=== PATIENT | male | born 1965 | race Caucasian/White ===

== ENCOUNTER 2016-12-11 22:05 | Emergency (ER) | payer OTHER ==
[~2016-12-11] VITALS: Ht 167.6 cm; Wt 80.9 kg
[~2016-12-11 22:05] MED LIST: ASPI-1061 PO; ATOR20TA86 PO; CARV12 PO; OMEP20 PO
[2016-12-11] MEDS ORDERED: NITR.4 SL (22:15)
[2016-12-11] MEDS ORDERED: ALLO100T PO (22:15)
[2016-12-11] MEDS ORDERED: ALBU8.5H IH (22:15)
[2016-12-11] MEDS ORDERED: SODIUM CHLORIDE 0.9% 1,000 ML IV ONE (22:27)
[2016-12-11 23:20] LABS: BASOPHILS % (AUTO) 0.6 % (0.0-2.0); EOSINOPHILS % (AUTO) 3.5 % (1.0-6.0); HEMATOCRIT 38.2 % (41-53); HEMOGLOBIN 12.4 g/dL (13.5-17.5); LYMPHOCYTES # (AUTO) 2.7 K/uL (1.0-4.8); LYMPHOCYTES % (AUTO) 40.4 % (22.0-44.0); MEAN CORPUSCULAR HEMOGLOBIN 28.7 pg (26.0-34.0); MEAN CORPUSCULAR HGB CONC 32.5 G/dL (31.0-37.0); MEAN CORPUSCULAR VOLUME 88 fL (80-100); MONOCYTES # (AUTO) 0.6 K/uL (0.1-1.0); MONOCYTES % (AUTO) 9.5 % (2.0-9.0); NEUTROPHILS # (AUTO) 3.1 K/uL (1.8-7.7); PLATELET COUNT (AUTO) 201 K/uL (150-450); RED BLOOD CELL COUNT(AUTO) 4.33 MIL/uL (4.50-5.90); RED CELL DISTRIBUTION WIDTH 14.6 % (11.5-14.5); WHITE BLOOD COUNT (AUTO) 6.7 K/uL (4.5-11.0)
[2016-12-11 23:24] LABS: PROTHROMBIN TIME 10.1 SEC (9.4-11.6)
[2016-12-11 23:26] LABS: ANION GAP 10 mmol/L (8-16); CALCIUM, TOTAL 8.6 mg/dL (8.8-10.5); CARBON DIOXIDE 25 mmol/L (22-29); CHLORIDE 107 mmol/L (98-107); GLOMERULAR FILTR. RATE CALC > 60 mL/min (>60); POTASSIUM 3.3 mmol/L (3.5-5.1); SODIUM SERUM 142 mmol/L (136-145); UREA NITROGEN, BLOOD 15 mg/dL (7-18)
[2016-12-11 23:32] LABS: ALANINE AMINOTRANSFERASE 28 U/L (12-78); ALBUMIN 3.7 g/dL (3.4-5.0); ASPARTATE AMINOTRANSFERASE 14 U/L (15-37); BILIRUBIN,TOTAL 0.2 mg/dL (0.1-1.0)
[2016-12-11 23:52] LABS: APPEARANCE,URINE CLEAR (CLEAR); GLUCOSE, URINE (UA) NEGATIVE (NEGATIVE); KETONES,URINE NEGATIVE (NEGATIVE); LEUKOCYTE ESTERASE ,URINE NEGATIVE (NEGATIVE); OCCULT BLOOD,URINE NEGATIVE (NEGATIVE); PROTEIN,URINE NEGATIVE (NEGATIVE)
[2016-12-11 23:53] LABS: ADD UA MICROSCOPIC NO
[2016-12-12] MEDS ORDERED: ONDANSETRON HCL 4 MG/2 ML VIAL IVP ONE (01:15)
[2016-12-12] MEDS ORDERED: MORPHINE SULFATE 4 MG/ML SYRINGE IVP ONE (01:15)
[2016-12-12] MEDS ORDERED: HYDROmorphone 2 MG/ML SYRINGE IVP ONE ×2 (03:15→05:00)
[2016-12-12] MEDS ORDERED: SODIUM CHLORIDE 0.9% 1,000 ML IV ONE (03:15)
[2016-12-12] MEDS ORDERED: METOCLOPRAMIDE HCL 5 MG/ML 2 ML VIAL IVP ONE (05:00)
[2016-12-12 06:03] VITALS: BP 98/66
== END 2016-12-12 06:05 | disposition home or self-care (01) ==
LOC: EMS 22:07
DX: K92.1 Melena (principal); I10 Essential (primary) hypertension; E87.6 Hypokalemia; D64.9 Anemia, unspecified; F17.210 Nicotine dependence, cigarettes, uncomplicated; F12.10 Cannabis abuse, uncomplicated; Z90.49 Acquired absence of other specified parts of digestive tract; F41.9 Anxiety disorder, unspecified; J45.909 Unspecified asthma, uncomplicated; F32.9 Major depressive disorder, single episode, unspecified; K21.9 Gastro-esophageal reflux disease without esophagitis; K58.9 Irritable bowel syndrome, unspecified; K85.90 Acute pancreatitis without necrosis or infection, unspecified
CPT/HCPCS: 36415; 74176; 80053; 81003; 82271; 83690; 85025; 85610; 85730; 96361; 96374; 96375; 96376; 99285; 99406; J1170; J2270; J2405; J2765; J7030 ×2

== ENCOUNTER 2017-06-03 13:05 | Emergency (ER) | payer OTHER ==
[~2017-06-03] VITALS: Ht 167.6 cm; Wt 78.6 kg
[~2017-06-03 13:05] MED LIST changes: +ALBU8.5H8 IH; +ALLO100T PO; -ASPI-1061 PO; +ASPI81TA33 PO; +NITR.4 SL
[2017-06-03 13:49] LABS: BASOPHILS % (AUTO) 0.4 % (0.0-2.0); EOSINOPHILS % (AUTO) 2.8 % (1.0-6.0); HEMATOCRIT 44.2 % (41-53); LYMPHOCYTES # (AUTO) 2.1 K/uL (1.0-4.8); LYMPHOCYTES % (AUTO) 30.4 % (22.0-44.0); MEAN CORPUSCULAR HEMOGLOBIN 29.6 pg (26.0-34.0); MEAN CORPUSCULAR HGB CONC 33.8 G/dL (31.0-37.0); MEAN CORPUSCULAR VOLUME 88 fL (80-100); MONOCYTES # (AUTO) 0.4 K/uL (0.1-1.0); MONOCYTES % (AUTO) 6.4 % (2.0-9.0); NEUTROPHILS # (AUTO) 4.2 K/uL (1.8-7.7); PLATELET COUNT (AUTO) 235 K/uL (150-450); RED BLOOD CELL COUNT(AUTO) 5.05 MIL/uL (4.50-5.90); RED CELL DISTRIBUTION WIDTH 15.4 % (11.5-14.5)
[2017-06-03 14:01] LABS: ANION GAP 10 mmol/L (8-16); CALCIUM, TOTAL 9.2 mg/dL (8.8-10.5); CARBON DIOXIDE 25 mmol/L (22-29); CHLORIDE 109 mmol/L (98-107); CREATININE 0.92 mg/dL (0.60-1.30); GLOMERULAR FILTR. RATE CALC > 60 mL/min (>60); POTASSIUM 4.4 mmol/L (3.5-5.1); SODIUM SERUM 144 mmol/L (136-145); UREA NITROGEN, BLOOD 10 mg/dL (7-18)
[2017-06-03 14:08] LABS: ALANINE AMINOTRANSFERASE 32 U/L (12-78); ASPARTATE AMINOTRANSFERASE 20 U/L (15-37); BILIRUBIN,TOTAL 0.3 mg/dL (0.1-1.0); TOTAL PROTEIN, SERUM 7.5 g/dL (6.4-8.2)
[2017-06-03 15:57] LABS: APPEARANCE,URINE CLEAR (CLEAR); GLUCOSE, URINE (UA) NEGATIVE (NEGATIVE); KETONES,URINE NEGATIVE (NEGATIVE); LEUKOCYTE ESTERASE ,URINE NEGATIVE (NEGATIVE); OCCULT BLOOD,URINE NEGATIVE (NEGATIVE); PROTEIN,URINE NEGATIVE (NEGATIVE)
[2017-06-03 15:58] LABS: ADD UA MICROSCOPIC NO
[2017-06-03] MEDS ORDERED: KETOROLAC TROMETHAMINE 30 MG/ML VIAL IVP ONE (16:15)
[2017-06-03] MEDS ORDERED: BARIUM SULFATE 0.1% SUSPENSION 450 ML BOTTLE PO ONE (17:30)
[2017-06-03] MEDS ORDERED: MORPHINE SULFATE 4 MG/ML SYRINGE IVP ONE (17:45)
[2017-06-03] MEDS ORDERED: METOCLOPRAMIDE HCL 5 MG/ML 2 ML VIAL IVP ONE (17:45)
[2017-06-03] MEDS ORDERED: ONDANSETRON HCL 4 MG/2 ML VIAL IVP ONE (17:45)
[2017-06-03] MEDS ORDERED: SODIUM CHLORIDE 0.9% 100 ML ONE (18:22)
[2017-06-03] MEDS ORDERED: IOVERSOL 320 MG/ML 100 ML VIAL ONE (18:22)
[2017-06-03 20:46] VITALS: BP 126/82
== END 2017-06-03 20:48 | disposition home or self-care (01) ==
LOC: EMS 13:09
DX: K86.1 Other chronic pancreatitis (principal); J45.909 Unspecified asthma, uncomplicated; I10 Essential (primary) hypertension; K21.9 Gastro-esophageal reflux disease without esophagitis; F12.90 Cannabis use, unspecified, uncomplicated; Z88.8 Allergy status to other drugs, medicaments and biological substances; Z87.891 Personal history of nicotine dependence
CPT/HCPCS: 36415; 74177; 80053; 81003; 83690; 85025; 96374; 96375; 99285; J1885; J2270; J2405; J2765; J7050; Q9967; Z7610

== ENCOUNTER 2017-08-01 08:53 | Emergency (ER) | payer OTHER ==
[~2017-08-01] VITALS: Ht 167.6 cm; Wt 78.2 kg
[2017-08-01 09:53] LABS: INFLUENZA TYPE B NEGATIVE FOR TYPE B (NEGATIVE)
[2017-08-01 11:01] VITALS: BP 130/88
== END 2017-08-01 11:09 | disposition home or self-care (01) ==
LOC: EMS 08:53
DX: J40 Bronchitis, not specified as acute or chronic (principal); M79.1 Myalgia; R19.7 Diarrhea, unspecified; J45.909 Unspecified asthma, uncomplicated; K21.9 Gastro-esophageal reflux disease without esophagitis; I10 Essential (primary) hypertension; F12.90 Cannabis use, unspecified, uncomplicated; Z86.73 Personal history of transient ischemic attack (TIA), and cerebral infarction without residual deficits; Z88.1 Allergy status to other antibiotic agents; Z88.8 Allergy status to other drugs, medicaments and biological substances; Z79.82 Long term (current) use of aspirin
CPT/HCPCS: 87804; 99285

== ENCOUNTER 2017-10-10 09:42 | Inpatient (IN) | payer OTHER ==
[~2017-10-10] VITALS: Ht 167.6 cm; Wt 79.5 kg
[2017-10-10 10:24] LABS: BASOPHILS % (AUTO) 0.5 % (0.0-2.0); EOSINOPHILS % (AUTO) 2.2 % (1.0-6.0); HEMATOCRIT 44.2 % (41-53); HEMOGLOBIN 14.8 g/dL (13.5-17.5); LYMPHOCYTES # (AUTO) 1.9 K/uL (1.0-4.8); LYMPHOCYTES % (AUTO) 29.6 % (22.0-44.0); MEAN CORPUSCULAR HEMOGLOBIN 29.7 pg (26.0-34.0); MEAN CORPUSCULAR HGB CONC 33.5 G/dL (31.0-37.0); MEAN CORPUSCULAR VOLUME 89 fL (80-100); MONOCYTES # (AUTO) 0.4 K/uL (0.1-1.0); MONOCYTES % (AUTO) 5.7 % (2.0-9.0); PLATELET COUNT (AUTO) 210 K/uL (150-450); RED BLOOD CELL COUNT(AUTO) 4.99 MIL/uL (4.50-5.90); RED CELL DISTRIBUTION WIDTH 14.1 % (11.5-14.5)
[2017-10-10 10:35] LABS: ANION GAP 8 mmol/L (8-16); CALCIUM, TOTAL 9.3 mg/dL (8.8-10.5); CARBON DIOXIDE 28 mmol/L (22-29); CHLORIDE 105 mmol/L (98-107); CREATININE 1.08 mg/dL (0.60-1.30); GLOMERULAR FILTR. RATE CALC > 60 mL/min (>60); GLUCOSE,RANDOM 121 mg/dL (70-110); SODIUM SERUM 141 mmol/L (136-145); UREA NITROGEN, BLOOD 18 mg/dL (7-18)
[2017-10-10] MEDS ORDERED: ASPIRIN 325 MG TABLET PO ONE (10:50)
[2017-10-10 10:59] LABS: ALANINE AMINOTRANSFERASE 32 U/L (12-78); ALBUMIN 4.1 g/dL (3.4-5.0); ALKALINE PHOSPHATASE 82 U/L (46-116); ASPARTATE AMINOTRANSFERASE 20 U/L (15-37); BILIRUBIN,TOTAL 0.6 mg/dL (0.1-1.0); CREATINE KINASE MB 1.1 ng/mL (0-5); CREATINE KINASE, TOTAL 83 U/L (39-308); TOTAL PROTEIN, SERUM 7.5 g/dL (6.4-8.2)
[2017-10-10 11:44] LABS: APPEARANCE,URINE CLEAR (CLEAR); BILIRUBIN,URINE NEGATIVE (NEGATIVE); GLUCOSE, URINE (UA) NEGATIVE (NEGATIVE); KETONES,URINE NEGATIVE (NEGATIVE); LEUKOCYTE ESTERASE ,URINE NEGATIVE (NEGATIVE); NITRATE,URINE NEGATIVE (NEGATIVE); OCCULT BLOOD,URINE NEGATIVE (NEGATIVE); PROTEIN,URINE NEGATIVE (NEGATIVE); UROBILINOGEN,URINE 0.2 mg/dL (<=1.0)
[2017-10-10] MEDS ORDERED: BISACODYL 10 MG RECTAL RECTAL SUPPOSITORY PR PRN (13:15)
[2017-10-10] MEDS ORDERED: HydrALAZINE HCL 20 MG/ML VIAL IVP PRN (13:15)
[2017-10-10] MEDS ORDERED: ONDANSETRON HCL 4 MG/2 ML VIAL IVP PRN (13:15)
[2017-10-10] MEDS ORDERED: ZOLPIDEM TARTRATE 5 MG TABLET PO PRN (13:15)
[2017-10-10] MEDS ORDERED: MORPHINE SULFATE 2 MG/ML SYRINGE IVP PRN (13:15)
[2017-10-10] MEDS ORDERED: MAGNESIUM HYDROXIDE SUSPENSION 30 ML UDCUP PO PRN (13:15)
[2017-10-10] MEDS ORDERED: ACETAMINOPHEN 325 MG TABLET PO PRN (13:15)
[2017-10-10] MEDS ORDERED: ALBUTEROL SULFATE HFA 90 MCG/PUFF 8 GM INHALER IH PRN (13:15)
[2017-10-10 13:40] LABS: AMPHET/METH SCREEN,URINE NEGATIVE (NEGATIVE); BARBITURATE SCREEN, URINE NEGATIVE (NEGATIVE); BENZODIAZEPINES SCREEN,URINE NEGATIVE (NEGATIVE); CANNABINOID SCREEN,URINE POSITIVE (NEGATIVE); COCAINE SCREEN,URINE NEGATIVE (NEGATIVE); METHADONE SCREEN, URINE NEGATIVE (NEGATIVE); OPIATE SCREEN,URINE POSITIVE (NEGATIVE); PHENCYCLIDINE SCREEN,URINE NEGATIVE (NEGATIVE)
[2017-10-10] MEDS ORDERED: ONDANSETRON HCL 4 MG TABLET PO ONE (13:45)
[2017-10-10] MEDS ORDERED: HYDROCODONE/ACETAMINOPHEN 5-325 MG TABLET PO ONE (13:45)
[2017-10-10 15:29] LABS: PROTHROMBIN TIME 10.4 SEC (9.4-11.6)
[2017-10-10] MEDS: NITROGLYCERIN 2% (1 GM=INCH) PACKET TP SCH ×2 (15:32→23:31)
[2017-10-10] MEDS: HEPARIN SODIUM,PORCINE 5,000 UNITS/ML VIAL SQ SCH ×2 (15:41→23:26)
[2017-10-10 18:04] VITALS: BP 118/80
[2017-10-10] MEDS: HYDROCODONE/ACETAMINOPHEN 5-325 MG TABLET PO PRN ×2 (18:34→23:26)
[2017-10-10 19:32] VITALS: BP 115/77
[2017-10-10] MEDS: DOCUSATE SODIUM 100 MG CAPSULE PO SCH (20:36)
[2017-10-10 23:15] VITALS: BP 109/73
[2017-10-11 04:44] VITALS: BP 106/69
[2017-10-11 06:38] LABS: BASOPHILS % (AUTO) 0.6 % (0.0-2.0); EOSINOPHILS % (AUTO) 3.8 % (1.0-6.0); HEMATOCRIT 41.2 % (41-53); HEMOGLOBIN 13.9 g/dL (13.5-17.5); LYMPHOCYTES # (AUTO) 2.1 K/uL (1.0-4.8); LYMPHOCYTES % (AUTO) 39.8 % (22.0-44.0); MEAN CORPUSCULAR HEMOGLOBIN 29.9 pg (26.0-34.0); MEAN CORPUSCULAR HGB CONC 33.7 G/dL (31.0-37.0); MEAN CORPUSCULAR VOLUME 89 fL (80-100); MONOCYTES # (AUTO) 0.4 K/uL (0.1-1.0); MONOCYTES % (AUTO) 8.3 % (2.0-9.0); NEUTROPHILS # (AUTO) 2.5 K/uL (1.8-7.7); NEUTROPHILS % (AUTO) 47.5 % (40.0-70.0); PLATELET COUNT (AUTO) 199 K/uL (150-450); RED BLOOD CELL COUNT(AUTO) 4.63 MIL/uL (4.50-5.90); RED CELL DISTRIBUTION WIDTH 14.2 % (11.5-14.5)
[2017-10-11 06:54] LABS: ANION GAP 8 mmol/L (8-16); CALCIUM, TOTAL 8.6 mg/dL (8.8-10.5); CARBON DIOXIDE 26 mmol/L (22-29); CHLORIDE 105 mmol/L (98-107); CHOL/HDL RATIO 2.4 (4.2-7.3); CHOLESTEROL 111 mg/dL (131-200); CREATININE 1.03 mg/dL (0.60-1.30); GLOMERULAR FILTR. RATE CALC > 60 mL/min (>60); GLUCOSE,RANDOM 105 mg/dL (70-110); HDL CHOLESTEROL 47 mg/dL (40-60); LDL CHOL (CALC.) 43 mg/dL (0-130); POTASSIUM 3.8 mmol/L (3.5-5.1); SODIUM SERUM 139 mmol/L (136-145); TRIGLYCERIDES 107 mg/dL (15-150); UREA NITROGEN, BLOOD 14 mg/dL (7-18)
[2017-10-11 07:34] VITALS: BP 95/60
[2017-10-11] MEDS: NITROGLYCERIN 2% (1 GM=INCH) PACKET TP SCH (08:00)
[2017-10-11] MEDS: HEPARIN SODIUM,PORCINE 5,000 UNITS/ML VIAL SQ SCH (08:00)
[2017-10-11] MEDS ORDERED: PANTOPRAZOLE SODIUM 40 MG DR TABLET PO SCH (09:00)
[2017-10-11] MEDS ORDERED: ASPIRIN 81 MG CHEWABLE TABLET PO SCH (09:00)
[2017-10-11] MEDS ORDERED: CARVEDILOL 12.5 MG TABLET PO SCH (09:00)
[2017-10-11] MEDS ORDERED: ALLOPURINOL 100 MG TABLET PO SCH (09:00)
[2017-10-11 09:10] VITALS: BP 116/74
[2017-10-11 10:53] VITALS: BP 158/66
[2017-10-11 11:59] VITALS: BP 101/48
[2017-10-11] MEDS: DOCUSATE SODIUM 100 MG CAPSULE PO SCH (12:02)
[2017-10-11] MEDS: HYDROCODONE/ACETAMINOPHEN 5-325 MG TABLET PO PRN (12:12)
[2017-10-11 15:48] VITALS: BP 114/66
== END 2017-10-11 18:11 | disposition home or self-care (01) | DRG 198 ==
LOC: EMS 09:43 → 5N 16:43 → EMS 17:37
PROVIDERS: ADMIT Internal Medicine; ATTEND Internal Medicine
DX: I20.0 Unstable angina (principal); I42.9 Cardiomyopathy, unspecified; K76.0 Fatty (change of) liver, not elsewhere classified; E78.5 Hyperlipidemia, unspecified; K21.9 Gastro-esophageal reflux disease without esophagitis; M10.9 Gout, unspecified; J45.909 Unspecified asthma, uncomplicated; F41.9 Anxiety disorder, unspecified; K58.9 Irritable bowel syndrome, unspecified; F12.90 Cannabis use, unspecified, uncomplicated; F17.210 Nicotine dependence, cigarettes, uncomplicated; I10 Essential (primary) hypertension; Z83.3 Family history of diabetes mellitus; Z82.49 Family history of ischemic heart disease and other diseases of the circulatory system; Z88.1 Allergy status to other antibiotic agents; Z88.8 Allergy status to other drugs, medicaments and biological substances; Z79.82 Long term (current) use of aspirin; Z79.899 Other long term (current) drug therapy; Z90.49 Acquired absence of other specified parts of digestive tract; I69.351 Hemiplegia and hemiparesis following cerebral infarction affecting right dominant side
CPT/HCPCS: 71046; 93005; 93017; 93350; 99285; J1644; Q0162

== ENCOUNTER 2018-01-13 13:10 | Inpatient (IN) | payer OTHER ==
[~2018-01-13] VITALS: Ht 172.7 cm; Wt 86.9 kg
[~2018-01-13 13:10] MED LIST changes: -ASPI81TA33 PO; +ASPI81TA87 PO
[2018-01-13] MEDS ORDERED: BUPR100 PO (13:28)
[2018-01-13] MEDS ORDERED: ERGO500014 PO (13:28)
[2018-01-13] MEDS ORDERED: VITAD1000 PO (13:28)
[2018-01-13] MEDS ORDERED: LORA0.5T2 PO (13:28)
[2018-01-13] MEDS ORDERED: OMEG-135 PO (13:28)
[2018-01-13 13:33] LABS: GLUCOSE,POINT OF CARE 97 MG/DL (70-110)
[2018-01-13] MEDS ORDERED: IOVERSOL 350 MG/ML 100 ML VIAL ONE (13:38)
[2018-01-13] MEDS ORDERED: SODIUM CHLORIDE 0.9% 100 ML ONE (13:38)
[2018-01-13 13:49] LABS: HEMATOCRIT 44.9 % (41-53); HEMOGLOBIN 15.1 g/dL (13.5-17.5); RED BLOOD CELL COUNT(AUTO) 5.26 MIL/uL (4.50-5.90)
[2018-01-13 13:50] LABS: BASOPHILS % (AUTO) 0.5 % (0.0-2.0); EOSINOPHILS % (AUTO) 2.8 % (1.0-6.0); LYMPHOCYTES % (AUTO) 30.9 % (22.0-44.0); MEAN CORPUSCULAR HEMOGLOBIN 28.8 pg (26.0-34.0); MEAN CORPUSCULAR HGB CONC 33.7 G/dL (31.0-37.0); MEAN CORPUSCULAR VOLUME 85 fL (80-100); MONOCYTES # (AUTO) 0.6 K/uL (0.1-1.0); MONOCYTES % (AUTO) 8.9 % (2.0-9.0); NEUTROPHILS # (AUTO) 3.8 K/uL (1.8-7.7); NEUTROPHILS % (AUTO) 56.9 % (40.0-70.0); PLATELET COUNT (AUTO) 233 K/uL (150-450); RED CELL DISTRIBUTION WIDTH 14.5 % (11.5-14.5)
[2018-01-13 14:05] LABS: INR 0.9 (0.9-1.1); PROTHROMBIN TIME 9.9 SEC (9.4-11.6)
[2018-01-13 14:06] LABS: ANION GAP 12 mmol/L (8-16); CALCIUM, TOTAL 9.1 mg/dL (8.8-10.5); CARBON DIOXIDE 22 mmol/L (22-29); CHLORIDE 105 mmol/L (98-107); CREATININE 1.02 mg/dL (0.60-1.30); GLOMERULAR FILTR. RATE CALC > 60 mL/min (>60); GLUCOSE,RANDOM 104 mg/dL (70-110); SODIUM SERUM 139 mmol/L (136-145); UREA NITROGEN, BLOOD 12 mg/dL (7-18)
[2018-01-13 14:11] LABS: ALANINE AMINOTRANSFERASE 38 U/L (12-78); ALBUMIN 4.1 g/dL (3.4-5.0); ALKALINE PHOSPHATASE 91 U/L (46-116); ASPARTATE AMINOTRANSFERASE 26 U/L (15-37); BILIRUBIN,TOTAL 0.4 mg/dL (0.1-1.0); LIPASE 277 U/L (73-393); TOTAL PROTEIN, SERUM 7.7 g/dL (6.4-8.2)
[2018-01-13] MEDS ORDERED: ASPIRIN 81 MG CHEWABLE TABLET PO ONE (14:15)
[2018-01-13] MEDS ORDERED: BUPR100SR PO (14:17)
[2018-01-13] MEDS ORDERED: ZOLPIDEM TARTRATE 5 MG TABLET PO PRN (14:30)
[2018-01-13] MEDS ORDERED: BISACODYL 10 MG RECTAL RECTAL SUPPOSITORY PR PRN (14:30)
[2018-01-13] MEDS ORDERED: IPRATROPIUM BROMIDE 0.5 MG/2.5 ML NEB SOLUTION NEB PRN (14:30)
[2018-01-13] MEDS ORDERED: ALBUTEROL SULFATE 2.5 MG/0.5 ML NEB SOLUTION NEB PRN (14:30)
[2018-01-13] MEDS ORDERED: LORazepam 0.5 MG TABLET PO PRN (14:30)
[2018-01-13] MEDS ORDERED: NITROGLYCERIN 0.4 MG SUBLINGUAL TABLET #25 SL PRN (14:30)
[2018-01-13] MEDS ORDERED: ACETAMINOPHEN 325 MG TABLET PO PRN (14:30)
[2018-01-13] MEDS ORDERED: MAGNESIUM HYDROXIDE SUSPENSION 30 ML UDCUP PO PRN (14:30)
[2018-01-13] MEDS: HEPARIN SODIUM,PORCINE 5,000 UNITS/ML VIAL SQ SCH (16:14)
[2018-01-13] MEDS: MORPHINE SULFATE 4 MG/ML SYRINGE IVP PRN ×2 (16:32→21:28)
[2018-01-13 16:58] LABS: APPEARANCE,URINE CLEAR (CLEAR); BILIRUBIN,URINE NEGATIVE (NEGATIVE); GLUCOSE, URINE (UA) NEGATIVE (NEGATIVE); KETONES,URINE NEGATIVE (NEGATIVE); LEUKOCYTE ESTERASE ,URINE NEGATIVE (NEGATIVE); NITRATE,URINE NEGATIVE (NEGATIVE); OCCULT BLOOD,URINE NEGATIVE (NEGATIVE); PROTEIN,URINE NEGATIVE (NEGATIVE); UROBILINOGEN,URINE 0.2 mg/dL (<=1.0)
[2018-01-13 18:46] VITALS: BP 132/81
[2018-01-13 19:41] VITALS: BP 116/72
[2018-01-13] MEDS: ATORVASTATIN CALCIUM 20 MG TABLET PO SCH (21:27)
[2018-01-13] MEDS: DOCUSATE SODIUM 100 MG CAPSULE PO SCH (21:27)
[2018-01-13 23:58] VITALS: BP 101/71
[2018-01-14] MEDS: HEPARIN SODIUM,PORCINE 5,000 UNITS/ML VIAL SQ SCH ×3 (00:20→16:13)
[2018-01-14] MEDS: HYDROCODONE/ACETAMINOPHEN 5-325 MG TABLET PO PRN ×3 (00:22→19:35)
[2018-01-14 04:38] VITALS: BP 110/74
[2018-01-14] MEDS: ONDANSETRON HCL 4 MG/2 ML VIAL IVP PRN ×2 (05:32→14:18)
[2018-01-14 07:06] VITALS: BP 107/63
[2018-01-14] MEDS ORDERED: GADOBUTROL 1 MMOL/ML 10 ML VIAL IVP ONE (08:25)
[2018-01-14] MEDS ORDERED: OMEPRAZOLE 20 MG CAPSULE PO SCH (09:00)
[2018-01-14] MEDS ORDERED: ASPIRIN 81 MG EC TABLET PO SCH (09:00)
[2018-01-14] MEDS ORDERED: OMEGA-3/DHA/EPA/FISH OIL 1,000 MG CAPSULE PO SCH (09:00)
[2018-01-14] MEDS: PANTOPRAZOLE SODIUM 40 MG/VIAL IVP SCH (09:16)
[2018-01-14] MEDS: ALLOPURINOL 100 MG TABLET PO SCH (09:17)
[2018-01-14] MEDS: DOCUSATE SODIUM 100 MG CAPSULE PO SCH ×2 (09:17→21:27)
[2018-01-14] MEDS: CHOLECALCIFEROL (VIT D3) 1,000 UNITS TABLET PO SCH (09:17)
[2018-01-14] MEDS: BuPROPion HCL 100 MG SR TABLET PO SCH (09:18)
[2018-01-14] MEDS: MORPHINE SULFATE 4 MG/ML SYRINGE IVP PRN (09:29)
[2018-01-14 11:23] VITALS: BP 103/64
[2018-01-14 15:01] VITALS: BP 131/83
[2018-01-14 19:20] VITALS: BP 117/76
[2018-01-14] MEDS: ATORVASTATIN CALCIUM 20 MG TABLET PO SCH (21:27)
[2018-01-15] VITALS (8 sets, daily range): BP systolic 102–121; BP diastolic 63–77
[2018-01-15] MEDS: HEPARIN SODIUM,PORCINE 5,000 UNITS/ML VIAL SQ SCH ×3 (00:01→16:13)
[2018-01-15] MEDS: HYDROCODONE/ACETAMINOPHEN 5-325 MG TABLET PO PRN ×4 (00:01→19:50)
[2018-01-15 06:31] LABS: BASOPHILS % (AUTO) 0.6 % (0.0-2.0); HEMOGLOBIN 13.7 g/dL (13.5-17.5); LYMPHOCYTES # (AUTO) 2.3 K/uL (1.0-4.8); LYMPHOCYTES % (AUTO) 42.4 % (22.0-44.0); MEAN CORPUSCULAR HEMOGLOBIN 29.1 pg (26.0-34.0); MEAN CORPUSCULAR HGB CONC 34.3 G/dL (31.0-37.0); MEAN CORPUSCULAR VOLUME 85 fL (80-100); MONOCYTES # (AUTO) 0.5 K/uL (0.1-1.0); MONOCYTES % (AUTO) 8.5 % (2.0-9.0); NEUTROPHILS # (AUTO) 2.5 K/uL (1.8-7.7); NEUTROPHILS % (AUTO) 45.5 % (40.0-70.0); PLATELET COUNT (AUTO) 225 K/uL (150-450); RED BLOOD CELL COUNT(AUTO) 4.71 MIL/uL (4.50-5.90); RED CELL DISTRIBUTION WIDTH 14.4 % (11.5-14.5)
[2018-01-15 07:30] LABS: ALANINE AMINOTRANSFERASE 50 U/L (12-78); ALBUMIN 3.5 g/dL (3.4-5.0); ALKALINE PHOSPHATASE 98 U/L (46-116); ANION GAP 10 mmol/L (8-16); ASPARTATE AMINOTRANSFERASE 25 U/L (15-37); BILIRUBIN,TOTAL 0.3 mg/dL (0.1-1.0); CALCIUM, TOTAL 8.8 mg/dL (8.8-10.5); CARBON DIOXIDE 25 mmol/L (22-29); CHLORIDE 104 mmol/L (98-107); CREATININE 1.16 mg/dL (0.60-1.30); GLOMERULAR FILTR. RATE CALC > 60 mL/min (>60); GLUCOSE,RANDOM 94 mg/dL (70-110); POTASSIUM 4.2 mmol/L (3.5-5.1); SODIUM SERUM 139 mmol/L (136-145); TOTAL PROTEIN, SERUM 6.4 g/dL (6.4-8.2); UREA NITROGEN, BLOOD 13 mg/dL (7-18)
[2018-01-15] MEDS: PANTOPRAZOLE SODIUM 40 MG/VIAL IVP SCH (08:21)
[2018-01-15] MEDS: CELECOXIB 200 MG CAPSULE PO SCH (08:22)
[2018-01-15] MEDS: CHOLECALCIFEROL (VIT D3) 1,000 UNITS TABLET PO SCH (08:23)
[2018-01-15] MEDS: DOCUSATE SODIUM 100 MG CAPSULE PO SCH ×2 (08:23→21:03)
[2018-01-15] MEDS: BuPROPion HCL 100 MG SR TABLET PO SCH (08:51)
[2018-01-15] MEDS: ALLOPURINOL 100 MG TABLET PO SCH (08:51)
[2018-01-15] MEDS: GABAPENTIN 100 MG CAPSULE PO SCH ×3 (08:52→21:03)
[2018-01-15] MEDS: KETOROLAC TROMETHAMINE 15 MG/ML VIAL IVP PRN ×2 (16:13→22:52)
[2018-01-15] MEDS: LIDOCAINE HCL 5% TRANSDERMAL PATCH TD SCH (16:13)
[2018-01-15] MEDS: ATORVASTATIN CALCIUM 20 MG TABLET PO SCH (21:03)
[2018-01-15] MEDS: CYCLOBENZAPRINE HCL 10 MG TABLET PO SCH (21:04)
[2018-01-15] MEDS: -LIDODERM PATCH NOTE- MISC SCH (22:58)
[2018-01-16] MEDS: HEPARIN SODIUM,PORCINE 5,000 UNITS/ML VIAL SQ SCH ×3 (00:16→15:44)
[2018-01-16] MEDS: HYDROCODONE/ACETAMINOPHEN 5-325 MG TABLET PO PRN ×4 (00:23→22:40)
[2018-01-16 04:17] VITALS: BP 123/69
[2018-01-16] MEDS: KETOROLAC TROMETHAMINE 15 MG/ML VIAL IVP PRN (06:34)
[2018-01-16 07:35] VITALS: BP 110/66
[2018-01-16] MEDS: GABAPENTIN 100 MG CAPSULE PO SCH ×3 (08:50→20:53)
[2018-01-16] MEDS: CELECOXIB 200 MG CAPSULE PO SCH (08:50)
[2018-01-16] MEDS: PANTOPRAZOLE SODIUM 40 MG/VIAL IVP SCH (08:51)
[2018-01-16] MEDS: DOCUSATE SODIUM 100 MG CAPSULE PO SCH ×2 (08:51→20:52)
[2018-01-16] MEDS: CHOLECALCIFEROL (VIT D3) 1,000 UNITS TABLET PO SCH (08:51)
[2018-01-16] MEDS: BuPROPion HCL 100 MG SR TABLET PO SCH (08:51)
[2018-01-16] MEDS: ALLOPURINOL 100 MG TABLET PO SCH (08:51)
[2018-01-16] MEDS: LIDOCAINE HCL 5% TRANSDERMAL PATCH TD SCH (08:53)
[2018-01-16 11:10] VITALS: BP 114/75
[2018-01-16 15:47] VITALS: BP 114/71
[2018-01-16] MEDS ORDERED: MethylPREDNISolone 4 MG TABLET PO ONE ×2 (17:00→21:00)
[2018-01-16] MEDS: MORPHINE SULFATE 4 MG/ML SYRINGE IVP PRN (17:56)
[2018-01-16 20:02] VITALS: BP 113/64
[2018-01-16] MEDS: ATORVASTATIN CALCIUM 20 MG TABLET PO SCH (20:53)
[2018-01-16] MEDS: CYCLOBENZAPRINE HCL 10 MG TABLET PO SCH (20:53)
[2018-01-16] MEDS: -LIDODERM PATCH NOTE- MISC SCH (20:58)
[2018-01-16 23:19] VITALS: BP 111/61
[2018-01-17] MEDS: HEPARIN SODIUM,PORCINE 5,000 UNITS/ML VIAL SQ SCH ×3 (00:32→16:00)
[2018-01-17 04:07] VITALS: BP 115/80
[2018-01-17] MEDS: HYDROCODONE/ACETAMINOPHEN 5-325 MG TABLET PO PRN ×3 (04:20→17:42)
[2018-01-17] MEDS ORDERED: MethylPREDNISolone 4 MG TABLET PO SCH ×2 (06:30→21:00)
[2018-01-17] MEDS: KETOROLAC TROMETHAMINE 15 MG/ML VIAL IVP PRN ×3 (06:30→20:25)
[2018-01-17 06:37] LABS: BASOPHILS % (AUTO) 0.2 % (0.0-2.0); EOSINOPHILS % (AUTO) 0.1 % (1.0-6.0); HEMOGLOBIN 13.6 g/dL (13.5-17.5); LYMPHOCYTES # (AUTO) 1.2 K/uL (1.0-4.8); LYMPHOCYTES % (AUTO) 14.8 % (22.0-44.0); MEAN CORPUSCULAR HEMOGLOBIN 29.1 pg (26.0-34.0); MEAN CORPUSCULAR HGB CONC 34.1 G/dL (31.0-37.0); MEAN CORPUSCULAR VOLUME 85 fL (80-100); MONOCYTES # (AUTO) 0.2 K/uL (0.1-1.0); NEUTROPHILS # (AUTO) 6.4 K/uL (1.8-7.7); NEUTROPHILS % (AUTO) 81.9 % (40.0-70.0); PLATELET COUNT (AUTO) 250 K/uL (150-450); RED BLOOD CELL COUNT(AUTO) 4.69 MIL/uL (4.50-5.90); RED CELL DISTRIBUTION WIDTH 14.2 % (11.5-14.5)
[2018-01-17 07:22] LABS: ALANINE AMINOTRANSFERASE 72 U/L (12-78); ALBUMIN 3.6 g/dL (3.4-5.0); ALKALINE PHOSPHATASE 93 U/L (46-116); ANION GAP 10 mmol/L (8-16); ASPARTATE AMINOTRANSFERASE 40 U/L (15-37); BILIRUBIN,TOTAL 0.2 mg/dL (0.1-1.0); CALCIUM, TOTAL 9.2 mg/dL (8.8-10.5); CARBON DIOXIDE 26 mmol/L (22-29); CHLORIDE 104 mmol/L (98-107); CREATININE 1.16 mg/dL (0.60-1.30); GLOMERULAR FILTR. RATE CALC > 60 mL/min (>60); GLUCOSE,RANDOM 140 mg/dL (70-110); POTASSIUM 4.9 mmol/L (3.5-5.1); SODIUM SERUM 140 mmol/L (136-145); TOTAL PROTEIN, SERUM 6.7 g/dL (6.4-8.2); UREA NITROGEN, BLOOD 16 mg/dL (7-18)
[2018-01-17 08:08] VITALS: BP 106/68
[2018-01-17] MEDS: PANTOPRAZOLE SODIUM 40 MG/VIAL IVP SCH (08:22)
[2018-01-17] MEDS: DOCUSATE SODIUM 100 MG CAPSULE PO SCH ×2 (08:23→20:25)
[2018-01-17] MEDS: GABAPENTIN 100 MG CAPSULE PO SCH ×3 (08:23→20:25)
[2018-01-17] MEDS: BuPROPion HCL 100 MG SR TABLET PO SCH (08:24)
[2018-01-17] MEDS: CHOLECALCIFEROL (VIT D3) 1,000 UNITS TABLET PO SCH (08:24)
[2018-01-17] MEDS: CELECOXIB 200 MG CAPSULE PO SCH (08:24)
[2018-01-17] MEDS: ALLOPURINOL 100 MG TABLET PO SCH (08:24)
[2018-01-17] MEDS: LIDOCAINE HCL 5% TRANSDERMAL PATCH TD SCH (08:25)
[2018-01-17] MEDS: MethylPREDNISolone 4 MG TABLET PO SCH ×2 (12:01→18:43)
[2018-01-17 12:07] VITALS: BP 127/76
[2018-01-17 15:42] VITALS: BP 124/72
[2018-01-17 19:51] VITALS: BP 121/63
[2018-01-17] MEDS: CYCLOBENZAPRINE HCL 10 MG TABLET PO SCH (20:25)
[2018-01-17] MEDS: ATORVASTATIN CALCIUM 20 MG TABLET PO SCH (20:25)
[2018-01-17] MEDS: -LIDODERM PATCH NOTE- MISC SCH (20:26)
[2018-01-18] MEDS: HEPARIN SODIUM,PORCINE 5,000 UNITS/ML VIAL SQ SCH ×2 (00:08→10:04)
[2018-01-18] MEDS: HYDROCODONE/ACETAMINOPHEN 5-325 MG TABLET PO PRN ×2 (00:13→10:09)
[2018-01-18 00:15] VITALS: BP 108/72
[2018-01-18 05:09] VITALS: BP 113/64
[2018-01-18] MEDS: KETOROLAC TROMETHAMINE 15 MG/ML VIAL IVP PRN (06:26)
[2018-01-18] MEDS ORDERED: MethylPREDNISolone 4 MG TABLET PO SCH (06:30)
[2018-01-18 07:32] VITALS: BP 102/71
[2018-01-18] MEDS: GABAPENTIN 100 MG CAPSULE PO SCH (10:03)
[2018-01-18] MEDS: ALLOPURINOL 100 MG TABLET PO SCH (10:03)
[2018-01-18] MEDS: DOCUSATE SODIUM 100 MG CAPSULE PO SCH (10:03)
[2018-01-18] MEDS: CELECOXIB 200 MG CAPSULE PO SCH (10:03)
[2018-01-18] MEDS: BuPROPion HCL 100 MG SR TABLET PO SCH (10:03)
[2018-01-18] MEDS: PANTOPRAZOLE SODIUM 40 MG/VIAL IVP SCH (10:04)
[2018-01-18] MEDS: LIDOCAINE HCL 5% TRANSDERMAL PATCH TD SCH (10:04)
[2018-01-18] MEDS: CHOLECALCIFEROL (VIT D3) 1,000 UNITS TABLET PO SCH (10:08)
[2018-01-18 11:19] VITALS: BP 114/69
[2018-01-18] MEDS: MethylPREDNISolone 4 MG TABLET PO SCH (12:23)
[2018-01-18] MEDS ORDERED: MEDR4 PO ×4 (13:27)
[2018-01-18] MEDS ORDERED: HYDR-305 PO ×2 (13:53)
[2018-01-19] MEDS ORDERED: MethylPREDNISolone 4 MG TABLET PO SCH (21:00)
[2018-01-20] MEDS ORDERED: MethylPREDNISolone 4 MG TABLET PO SCH (12:30)
== END 2018-01-18 15:45 | disposition home health service (06) | DRG 45 ==
LOC: EMS 13:11 → 5S 17:30 → 6N 01-15 01:01
PROVIDERS: ADMIT Hospitalist; ATTEND Hospitalist
DX: I63.9 Cerebral infarction, unspecified (principal); K76.0 Fatty (change of) liver, not elsewhere classified; G81.91 Hemiplegia, unspecified affecting right dominant side; F44.4 Conversion disorder with motor symptom or deficit; I10 Essential (primary) hypertension; F32.9 Major depressive disorder, single episode, unspecified; F41.9 Anxiety disorder, unspecified; K21.9 Gastro-esophageal reflux disease without esophagitis; K58.0 Irritable bowel syndrome with diarrhea; G45.9 Transient cerebral ischemic attack, unspecified; J45.909 Unspecified asthma, uncomplicated; E78.5 Hyperlipidemia, unspecified; E11.9 Type 2 diabetes mellitus without complications; M10.9 Gout, unspecified; G43.909 Migraine, unspecified, not intractable, without status migrainosus; M79.1 Myalgia; M54.81 Occipital neuralgia; M48.00 Spinal stenosis, site unspecified; F12.90 Cannabis use, unspecified, uncomplicated; Z90.49 Acquired absence of other specified parts of digestive tract; Z88.1 Allergy status to other antibiotic agents; Z88.8 Allergy status to other drugs, medicaments and biological substances; Z79.82 Long term (current) use of aspirin; Z79.899 Other long term (current) drug therapy; Z79.84 Long term (current) use of oral hypoglycemic drugs; Z86.73 Personal history of transient ischemic attack (TIA), and cerebral infarction without residual deficits; Z83.3 Family history of diabetes mellitus
CPT/HCPCS: 70496; 70553; 72125; 72148; 83735; 93005; 93306; 93880; 97110; 97116; 97161; 97165; 97530; 97535; 99291; A9585; C9113; J1644; J1885; J2270; J2405; J7050; J7509

== ENCOUNTER 2018-03-07 14:43 | Emergency (ER) | payer OTHER ==
[~2018-03-07] VITALS: Ht 167.6 cm; Wt 89.0 kg
[~2018-03-07 14:43] MED LIST changes: +BUPR100SR PO; +ERGO500014 PO; +HYDR-305 PO; +MEDR4 PO; +OMEG-135 PO; +VITAD1000 PO
[2018-03-07 15:08] LABS: GLUCOSE,POINT OF CARE 154 MG/DL (70-110)
[2018-03-07 15:26] VITALS: BP 160/98
[2018-03-07] MEDS ORDERED: LEVOFLOXACIN 250 MG TABLET PO ONE (15:30)
== END 2018-03-07 16:05 | disposition home or self-care (01) ==
LOC: EMS 14:45
DX: K04.7 Periapical abscess without sinus (principal); J45.909 Unspecified asthma, uncomplicated; K21.9 Gastro-esophageal reflux disease without esophagitis; I10 Essential (primary) hypertension; F12.90 Cannabis use, unspecified, uncomplicated; Z86.73 Personal history of transient ischemic attack (TIA), and cerebral infarction without residual deficits; Z87.891 Personal history of nicotine dependence; Z88.5 Allergy status to narcotic agent; Z88.8 Allergy status to other drugs, medicaments and biological substances
CPT/HCPCS: 99283

== ENCOUNTER 2018-03-07 22:38 | Emergency (ER) | payer OTHER | END 2018-03-08 00:19 | disposition left against medical advice (07) | LOC: EMS 22:39 | DX: Z53.21 Procedure and treatment not carried out due to patient leaving prior to being seen by health care provider (principal) ==

== ENCOUNTER 2018-09-27 11:48 | Emergency (ER) | payer OTHER ==
[~2018-09-27] VITALS: Ht 167.6 cm; Wt 84.1 kg
[~2018-09-27 11:48] MED LIST changes: -ALLO100T PO; -ERGO500014 PO; -HYDR-305 PO; +HYDR-4455 PO; -MEDR4 PO; -VITAD1000 PO
[2018-09-27 12:49] LABS: BASOPHILS % (AUTO) 0.3 % (0.0-2.0); EOSINOPHILS % (AUTO) 2.1 % (1.0-6.0); HEMATOCRIT 45.6 % (41-53); LYMPHOCYTES # (AUTO) 0.7 K/uL (1.0-4.8); LYMPHOCYTES % (AUTO) 5.9 % (22.0-44.0); MEAN CORPUSCULAR HEMOGLOBIN 28.5 pg (26.0-34.0); MEAN CORPUSCULAR HGB CONC 32.9 G/dL (31.0-37.0); MEAN CORPUSCULAR VOLUME 87 fL (80-100); MONOCYTES % (AUTO) 8.8 % (2.0-9.0); NEUTROPHILS # (AUTO) 9.4 K/uL (1.8-7.7); NEUTROPHILS % (AUTO) 82.9 % (40.0-70.0); PLATELET COUNT (AUTO) 218 K/uL (150-450); RED BLOOD CELL COUNT(AUTO) 5.26 MIL/uL (4.50-5.90); RED CELL DISTRIBUTION WIDTH 14.4 % (11.5-14.5)
[2018-09-27 12:59] LABS: ANION GAP 11 mmol/L (8-16); CALCIUM, TOTAL 9.2 mg/dL (8.8-10.5); CARBON DIOXIDE 25 mmol/L (22-29); CHLORIDE 106 mmol/L (98-107); CREATININE 0.97 mg/dL (0.60-1.30); GLOMERULAR FILTR. RATE CALC > 60 mL/min (>60); GLUCOSE,RANDOM 103 mg/dL (70-110); POTASSIUM 4.2 mmol/L (3.5-5.1); SODIUM SERUM 142 mmol/L (136-145); UREA NITROGEN, BLOOD 15 mg/dL (7-18)
[2018-09-27 13:05] LABS: ALANINE AMINOTRANSFERASE 40 U/L (12-78); ALBUMIN 3.8 g/dL (3.4-5.0); ALKALINE PHOSPHATASE 94 U/L (46-116); ASPARTATE AMINOTRANSFERASE 23 U/L (15-37); BILIRUBIN,TOTAL 0.5 mg/dL (0.1-1.0); LIPASE 397 U/L (73-393); TOTAL PROTEIN, SERUM 7.1 g/dL (6.4-8.2)
[2018-09-27] MEDS ORDERED: SODIUM CHLORIDE 0.9% 2,000 ML IV ONE (13:15)
[2018-09-27] MEDS ORDERED: ONDANSETRON HCL 4 MG/2 ML VIAL IVP ONE (13:15)
[2018-09-27] MEDS ORDERED: BARIUM SULFATE 0.1% SUSPENSION 450 ML BOTTLE PO ONE (13:15)
[2018-09-27] MEDS ORDERED: FentaNYL CITRATE-PF 100 MCG/2 ML VIAL IVP ONE (13:15)
[2018-09-27 13:29] LABS: TRIGLYCERIDES 114 mg/dL (15-150)
[2018-09-27] MEDS ORDERED: IOVERSOL 320 MG/ML 100 ML VIAL ONE (14:52)
[2018-09-27] MEDS ORDERED: SODIUM CHLORIDE 0.9% 100 ML ONE (14:52)
[2018-09-27 15:33] LABS: APPEARANCE,URINE CLEAR (CLEAR); BILIRUBIN,URINE NEGATIVE (NEGATIVE); GLUCOSE, URINE (UA) NEGATIVE (NEGATIVE); KETONES,URINE NEGATIVE (NEGATIVE); LEUKOCYTE ESTERASE ,URINE NEGATIVE (NEGATIVE); NITRATE,URINE NEGATIVE (NEGATIVE); OCCULT BLOOD,URINE NEGATIVE (NEGATIVE); PROTEIN,URINE NEGATIVE (NEGATIVE); UROBILINOGEN,URINE 0.2 mg/dL (<=1.0)
[2018-09-27 15:48] LABS: BACTERIA,URINE None Seen /HPF (None Seen); RBC,URINE None Seen /HPF (0-2); WBC,URINE None Seen /HPF (0-5)
[2018-09-27 15:49] LABS: SQUAMOUS EPITHELIAL CELL,UR Rare /LPF (None Seen)
[2018-09-27 18:24] VITALS: BP 123/76
== END 2018-09-27 18:27 | disposition home or self-care (01) ==
LOC: EMS 11:49
DX: K52.9 Noninfective gastroenteritis and colitis, unspecified (principal); I10 Essential (primary) hypertension; K21.9 Gastro-esophageal reflux disease without esophagitis; J45.909 Unspecified asthma, uncomplicated; F41.9 Anxiety disorder, unspecified; F12.90 Cannabis use, unspecified, uncomplicated; Z87.891 Personal history of nicotine dependence; Z88.8 Allergy status to other drugs, medicaments and biological substances; Z79.82 Long term (current) use of aspirin
CPT/HCPCS: 36415; 71045; 74177; 80053; 81001; 83690; 84478; 84484; 85025; 93005; 96361; 96374; 96375; 99285; J2405; J3010; J7030; J7050; Q9967

== ENCOUNTER 2018-12-08 11:24 | Emergency (ER) | payer OTHER ==
[~2018-12-08] VITALS: Ht 167.6 cm; Wt 84.1 kg
[2018-12-08] MEDS ORDERED: IPRATROPIUM BROMIDE 0.5 MG/2.5 ML NEB SOLUTION NEB ONE (11:45)
[2018-12-08] MEDS ORDERED: ALBUTEROL SULFATE 2.5 MG/0.5 ML NEB SOLUTION NEB ONE (11:45)
[2018-12-08] MEDS ORDERED: ASPIRIN 325 MG TABLET PO ONE (12:00)
[2018-12-08 12:14] LABS: BASOPHILS % (AUTO) 0.5 % (0.0-2.0); EOSINOPHILS % (AUTO) 2.7 % (1.0-6.0); HEMATOCRIT 43.2 % (41-53); HEMOGLOBIN 14.6 g/dL (13.5-17.5); LYMPHOCYTES # (AUTO) 2.4 K/uL (1.0-4.8); LYMPHOCYTES % (AUTO) 28.2 % (22.0-44.0); MEAN CORPUSCULAR HEMOGLOBIN 28.5 pg (26.0-34.0); MEAN CORPUSCULAR HGB CONC 33.8 G/dL (31.0-37.0); MEAN CORPUSCULAR VOLUME 84 fL (80-100); MONOCYTES # (AUTO) 0.7 K/uL (0.1-1.0); MONOCYTES % (AUTO) 7.7 % (2.0-9.0); NEUTROPHILS # (AUTO) 5.2 K/uL (1.8-7.7); NEUTROPHILS % (AUTO) 60.9 % (40.0-70.0); PLATELET COUNT (AUTO) 279 K/uL (150-450); RED BLOOD CELL COUNT(AUTO) 5.13 MIL/uL (4.50-5.90); RED CELL DISTRIBUTION WIDTH 14.8 % (11.5-14.5)
[2018-12-08 12:29] LABS: ANION GAP 14 mmol/L (8-16); CARBON DIOXIDE 22 mmol/L (22-29); CHLORIDE 105 mmol/L (98-107); CREATININE 1.01 mg/dL (0.60-1.30); GLOMERULAR FILTR. RATE CALC > 60 mL/min (>60); GLUCOSE,RANDOM 95 mg/dL (70-110); SODIUM SERUM 141 mmol/L (136-145); UREA NITROGEN, BLOOD 14 mg/dL (7-18)
[2018-12-08 12:32] LABS: ALANINE AMINOTRANSFERASE 31 U/L (12-78); ALBUMIN 4.1 g/dL (3.4-5.0); ALKALINE PHOSPHATASE 107 U/L (46-116); ASPARTATE AMINOTRANSFERASE 17 U/L (15-37); BILIRUBIN,TOTAL 0.4 mg/dL (0.1-1.0); LIPASE 395 U/L (73-393); TOTAL PROTEIN, SERUM 7.8 g/dL (6.4-8.2)
[2018-12-08 12:39] LABS: B-TYPE NATRIURETIC PEPTIDE 23 pg/mL (0-100)
[2018-12-08 12:43] LABS: INFLUENZA TYPE A NEGATIVE FOR TYPE A (NEGATIVE); INFLUENZA TYPE B NEGATIVE FOR TYPE B (NEGATIVE)
[2018-12-08 12:43] LABS: AMPHET/METH SCREEN,URINE NEGATIVE (NEGATIVE); BARBITURATE SCREEN, URINE NEGATIVE (NEGATIVE); BENZODIAZEPINES SCREEN,URINE NEGATIVE (NEGATIVE); CANNABINOID SCREEN,URINE POSITIVE (NEGATIVE); COCAINE SCREEN,URINE NEGATIVE (NEGATIVE); METHADONE SCREEN, URINE NEGATIVE (NEGATIVE); OPIATE SCREEN,URINE NEGATIVE (NEGATIVE)
[2018-12-08 12:44] LABS: PHENCYCLIDINE SCREEN,URINE NEGATIVE (NEGATIVE)
[2018-12-08 12:49] LABS: APPEARANCE,URINE CLEAR (CLEAR); BILIRUBIN,URINE NEGATIVE (NEGATIVE); GLUCOSE, URINE (UA) NEGATIVE (NEGATIVE); KETONES,URINE NEGATIVE (NEGATIVE); LEUKOCYTE ESTERASE ,URINE NEGATIVE (NEGATIVE); NITRATE,URINE NEGATIVE (NEGATIVE); OCCULT BLOOD,URINE NEGATIVE (NEGATIVE); PROTEIN,URINE NEGATIVE (NEGATIVE); UROBILINOGEN,URINE 0.2 mg/dL (<=1.0)
[2018-12-08 12:59] LABS: BACTERIA,URINE None Seen /HPF (None Seen); RBC,URINE None Seen /HPF (0-2); WBC,URINE None Seen /HPF (0-5)
[2018-12-08 13:24] VITALS: BP 132/78
== END 2018-12-08 13:28 | disposition home or self-care (01) ==
LOC: EMS 11:24
DX: J45.901 Unspecified asthma with (acute) exacerbation (principal); J18.9 Pneumonia, unspecified organism; I10 Essential (primary) hypertension; K21.9 Gastro-esophageal reflux disease without esophagitis; F41.9 Anxiety disorder, unspecified; F32.9 Major depressive disorder, single episode, unspecified; F12.90 Cannabis use, unspecified, uncomplicated; Z86.73 Personal history of transient ischemic attack (TIA), and cerebral infarction without residual deficits; Z90.49 Acquired absence of other specified parts of digestive tract; Z87.891 Personal history of nicotine dependence; Z79.82 Long term (current) use of aspirin; Z88.1 Allergy status to other antibiotic agents; Z88.8 Allergy status to other drugs, medicaments and biological substances; Z79.899 Other long term (current) drug therapy
CPT/HCPCS: 83605; 87804; 93005; 94640

== ENCOUNTER 2019-03-24 21:01 | Inpatient (IN) | payer OTHER ==
[~2019-03-24] VITALS: Ht 165.1 cm; Wt 83.1 kg
[~2019-03-24 21:01] MED LIST changes: -NITR.4 SL; +NITR0.4T52 SL
[2019-03-24] MEDS ORDERED: CARV6 PO (21:11)
[2019-03-24] MEDS ORDERED: SODIUM CHLORIDE 0.9% 100 ML ONE (21:18)
[2019-03-24] MEDS ORDERED: IOVERSOL 350 MG/ML 100 ML VIAL ONE (21:18)
[2019-03-24 21:22] LABS: BASOPHILS % (AUTO) 0.7 % (0.0-2.0); EOSINOPHILS % (AUTO) 3.9 % (1.0-6.0); HEMATOCRIT 46.6 % (41-53); HEMOGLOBIN 15.1 g/dL (13.5-17.5); LYMPHOCYTES # (AUTO) 3.2 K/uL (1.0-4.8); LYMPHOCYTES % (AUTO) 44.5 % (22.0-44.0); MEAN CORPUSCULAR HGB CONC 32.5 G/dL (31.0-37.0); MEAN CORPUSCULAR VOLUME 89 fL (80-100); MONOCYTES # (AUTO) 0.6 K/uL (0.1-1.0); MONOCYTES % (AUTO) 9.1 % (2.0-9.0); NEUTROPHILS % (AUTO) 41.8 % (40.0-70.0); PLATELET COUNT (AUTO) 254 K/uL (150-450); RED BLOOD CELL COUNT(AUTO) 5.22 MIL/uL (4.50-5.90); RED CELL DISTRIBUTION WIDTH 14.9 % (11.5-14.5)
[2019-03-24 21:32] LABS: ANION GAP 13 mmol/L (8-16); CALCIUM, TOTAL 9.6 mg/dL (8.8-10.5); CARBON DIOXIDE 23 mmol/L (22-29); CHLORIDE 105 mmol/L (98-107); CREATININE 1.19 mg/dL (0.60-1.30); GLOMERULAR FILTR. RATE CALC > 60 mL/min (>60); GLUCOSE,RANDOM 88 mg/dL (70-110); POTASSIUM 4.1 mmol/L (3.5-5.1); SODIUM SERUM 141 mmol/L (136-145); UREA NITROGEN, BLOOD 16 mg/dL (7-18)
[2019-03-24 21:33] LABS: INR 0.9 (0.9-1.1); PROTHROMBIN TIME 9.9 SEC (9.4-11.6)
[2019-03-24 21:38] LABS: ALANINE AMINOTRANSFERASE 38 U/L (12-78); ALKALINE PHOSPHATASE 102 U/L (46-116); ASPARTATE AMINOTRANSFERASE 21 U/L (15-37); BILIRUBIN,TOTAL 0.6 mg/dL (0.1-1.0); TOTAL PROTEIN, SERUM 7.5 g/dL (6.4-8.2)
[2019-03-24] MEDS ORDERED: ACETAMINOPHEN 325 MG TABLET PO PRN (22:15)
[2019-03-24] MEDS ORDERED: 0.9% SODIUM CHLORIDE 10 ML SYRINGE IVP PRN ×2 (22:15→23:15)
[2019-03-24] MEDS ORDERED: ONDANSETRON HCL 4 MG/2 ML VIAL IVP PRN ×2 (22:15→23:15)
[2019-03-24] MEDS ORDERED: ASPIRIN 325 MG TABLET PO ONE (22:15)
[2019-03-24 22:38] LABS: AMPHET/METH SCREEN,URINE NEGATIVE (NEGATIVE); BARBITURATE SCREEN, URINE NEGATIVE (NEGATIVE); BENZODIAZEPINES SCREEN,URINE NEGATIVE (NEGATIVE); CANNABINOID SCREEN,URINE POSITIVE (NEGATIVE); COCAINE SCREEN,URINE NEGATIVE (NEGATIVE); METHADONE SCREEN, URINE NEGATIVE (NEGATIVE); OPIATE SCREEN,URINE POSITIVE (NEGATIVE); PHENCYCLIDINE SCREEN,URINE NEGATIVE (NEGATIVE)
[2019-03-24 22:43] LABS: APPEARANCE,URINE CLEAR (CLEAR); BILIRUBIN,URINE NEGATIVE (NEGATIVE); GLUCOSE, URINE (UA) NEGATIVE (NEGATIVE); KETONES,URINE NEGATIVE (NEGATIVE); LEUKOCYTE ESTERASE ,URINE NEGATIVE (NEGATIVE); NITRATE,URINE NEGATIVE (NEGATIVE); OCCULT BLOOD,URINE NEGATIVE (NEGATIVE); PROTEIN,URINE NEGATIVE (NEGATIVE); UROBILINOGEN,URINE 0.2 mg/dL (<=1.0)
[2019-03-24 22:50] LABS: BACTERIA,URINE None Seen /HPF (None Seen); RBC,URINE None Seen /HPF (0-2); SQUAMOUS EPITHELIAL CELL,UR Rare /LPF (None Seen); WBC,URINE 0-2 /HPF (0-5)
[2019-03-24] MEDS ORDERED: ZOLPIDEM TARTRATE 5 MG TABLET PO PRN (23:15)
[2019-03-24] MEDS ORDERED: NITROGLYCERIN 0.4 MG SUBLINGUAL TABLET #25 SL PRN (23:15)
[2019-03-24] MEDS: ATORVASTATIN CALCIUM 40 MG TABLET PO SCH (23:37)
[2019-03-25] VITALS (7 sets, daily range): BP systolic 116–141; BP diastolic 66–89
[2019-03-25] MEDS: OMEGA-3/DHA/EPA/FISH OIL 1,000 MG CAPSULE PO SCH ×3 (00:34→20:25)
[2019-03-25] MEDS: CARVEDILOL 6.25 MG TABLET PO SCH ×3 (00:35→20:25)
[2019-03-25 05:42] LABS: BASOPHILS % (AUTO) 0.4 % (0.0-2.0); EOSINOPHILS % (AUTO) 4.4 % (1.0-6.0); HEMATOCRIT 43.9 % (41-53); HEMOGLOBIN 14.3 g/dL (13.5-17.5); LYMPHOCYTES # (AUTO) 2.2 K/uL (1.0-4.8); LYMPHOCYTES % (AUTO) 39.1 % (22.0-44.0); MEAN CORPUSCULAR HEMOGLOBIN 28.8 pg (26.0-34.0); MEAN CORPUSCULAR HGB CONC 32.5 G/dL (31.0-37.0); MEAN CORPUSCULAR VOLUME 89 fL (80-100); MONOCYTES # (AUTO) 0.5 K/uL (0.1-1.0); MONOCYTES % (AUTO) 9.5 % (2.0-9.0); NEUTROPHILS # (AUTO) 2.6 K/uL (1.8-7.7); NEUTROPHILS % (AUTO) 46.6 % (40.0-70.0); PLATELET COUNT (AUTO) 236 K/uL (150-450); RED BLOOD CELL COUNT(AUTO) 4.95 MIL/uL (4.50-5.90); RED CELL DISTRIBUTION WIDTH 14.8 % (11.5-14.5)
[2019-03-25 06:57] LABS: ALANINE AMINOTRANSFERASE 33 U/L (12-78); ALBUMIN 3.5 g/dL (3.4-5.0); ALKALINE PHOSPHATASE 90 U/L (46-116); ANION GAP 12 mmol/L (8-16); ASPARTATE AMINOTRANSFERASE 21 U/L (15-37); BILIRUBIN,TOTAL 0.5 mg/dL (0.1-1.0); CARBON DIOXIDE 23 mmol/L (22-29); CHLORIDE 103 mmol/L (98-107); CREATININE 0.97 mg/dL (0.60-1.30); GLOMERULAR FILTR. RATE CALC > 60 mL/min (>60); GLUCOSE,RANDOM 106 mg/dL (70-110); POTASSIUM 3.8 mmol/L (3.5-5.1); SODIUM SERUM 138 mmol/L (136-145); TOTAL PROTEIN, SERUM 6.7 g/dL (6.4-8.2); UREA NITROGEN, BLOOD 14 mg/dL (7-18)
[2019-03-25] MEDS: PANTOPRAZOLE SODIUM 40 MG DR TABLET PO SCH (08:53)
[2019-03-25] MEDS: BuPROPion HCL 100 MG SR TABLET PO SCH (08:53)
[2019-03-25] MEDS ORDERED: ASPIRIN 81 MG EC TABLET PO SCH (09:00)
[2019-03-25] MEDS: IBUPROFEN 400 MG TABLET PO PRN (14:40)
[2019-03-25] MEDS: ATORVASTATIN CALCIUM 40 MG TABLET PO SCH (20:25)
[2019-03-26] MEDS: IBUPROFEN 400 MG TABLET PO PRN (01:53)
[2019-03-26 04:04] VITALS: BP 122/69
[2019-03-26] MEDS ORDERED: KETOROLAC TROMETHAMINE 15 MG/ML VIAL IVP ONE (06:30)
[2019-03-26 06:54] LABS: HEMOGLOBIN A1C 6.4 % (4.5-6.2)
[2019-03-26 07:06] VITALS: BP 118/77
[2019-03-26 07:09] LABS: CHOL/HDL RATIO 3.9 (4.2-7.3); THYROID STIMULATING HORMONE 1.93 uIU/mL (0.36-3.74)
[2019-03-26] MEDS: OMEGA-3/DHA/EPA/FISH OIL 1,000 MG CAPSULE PO SCH ×2 (08:40→21:14)
[2019-03-26] MEDS: PANTOPRAZOLE SODIUM 40 MG DR TABLET PO SCH (08:41)
[2019-03-26] MEDS: CARVEDILOL 6.25 MG TABLET PO SCH ×2 (08:41→21:14)
[2019-03-26] MEDS: ASPIRIN 81 MG EC TABLET PO SCH (08:45)
[2019-03-26] MEDS: BuPROPion HCL 100 MG SR TABLET PO SCH (09:40)
[2019-03-26 10:55] VITALS: BP 132/97
[2019-03-26] MEDS ORDERED: KETOROLAC TROMETHAMINE 15 MG/ML VIAL IVP SCH (12:00)
[2019-03-26] MEDS: SUMAtriptan SUCCINATE 25 MG TABLET PO PRN ×2 (12:16→18:22)
[2019-03-26] MEDS: KETOROLAC TROMETHAMINE 15 MG/ML VIAL IVP PRN ×2 (14:43→22:55)
[2019-03-26 19:19] VITALS: BP 125/80
[2019-03-26] MEDS: ATORVASTATIN CALCIUM 40 MG TABLET PO SCH (21:14)
[2019-03-26 23:06] VITALS: BP 119/79
[2019-03-27 06:38] VITALS: BP 122/76
[2019-03-27] MEDS: ASPIRIN 81 MG EC TABLET PO SCH (08:11)
[2019-03-27] MEDS: BuPROPion HCL 100 MG SR TABLET PO SCH (08:12)
[2019-03-27] MEDS: OMEGA-3/DHA/EPA/FISH OIL 1,000 MG CAPSULE PO SCH (08:12)
[2019-03-27] MEDS: CARVEDILOL 6.25 MG TABLET PO SCH (08:13)
[2019-03-27] MEDS: PANTOPRAZOLE SODIUM 40 MG DR TABLET PO SCH (08:13)
[2019-03-27] MEDS: SUMAtriptan SUCCINATE 25 MG TABLET PO PRN (08:15)
[2019-03-27 08:53] VITALS: BP 117/77
[2019-03-27] MEDS: KETOROLAC TROMETHAMINE 15 MG/ML VIAL IVP PRN (10:24)
[2019-03-27 12:22] VITALS: BP 131/84
[2019-03-27] MEDS ORDERED: SUMA25TA9 PO (13:47)
[2019-03-27] MEDS ORDERED: ASPI-891 PO (13:48)
== END 2019-03-27 15:15 | disposition home health service (06) | DRG 47 ==
LOC: EMS 21:03 → 5S 22:18
PROVIDERS: ADMIT Internal Medicine; ATTEND Internal Medicine
DX: G45.9 Transient cerebral ischemic attack, unspecified (principal); K86.1 Other chronic pancreatitis; F32.9 Major depressive disorder, single episode, unspecified; F41.9 Anxiety disorder, unspecified; M19.90 Unspecified osteoarthritis, unspecified site; J45.909 Unspecified asthma, uncomplicated; K21.9 Gastro-esophageal reflux disease without esophagitis; I10 Essential (primary) hypertension; K58.9 Irritable bowel syndrome, unspecified; E78.5 Hyperlipidemia, unspecified; G43.909 Migraine, unspecified, not intractable, without status migrainosus; Z87.891 Personal history of nicotine dependence; Z83.3 Family history of diabetes mellitus
CPT/HCPCS: 70496; 70551; 83036; 83735; 84443; 86850; 86900; 86901; 92507; 92523; 93005; 93306; 97110; 97112; 97116; 97162; 97166; 97535; G0378; J1885; J2405; J7050

== ENCOUNTER 2019-04-13 12:45 | Emergency (ER) | payer OTHER ==
[~2019-04-13] VITALS: Ht 167.6 cm; Wt 84.5 kg
[~2019-04-13 12:45] MED LIST changes: +ASPI-891 PO; -ASPI81TA87 PO; -CARV12 PO; +CARV6 PO; +SUMA25TA9 PO
[2019-04-13] MEDS: DIAZEPAM 5 MG TABLET PO ONE (14:16)
[2019-04-13] MEDS: DEXAMETHASONE SOD PHOS 4 MG/ML 5 ML VIAL IM ONE (14:17)
[2019-04-13] MEDS: KETOROLAC TROMETHAMINE 30 MG/ML VIAL IM ONE (14:18)
[2019-04-13 15:40] VITALS: BP 129/98
[2019-04-13] MEDS: MORPHINE SULFATE 2 MG/ML SYRINGE IM ONE (16:04)
== END 2019-04-13 16:17 | disposition home or self-care (01) ==
LOC: EMS 12:48
DX: S33.5XXA Sprain of ligaments of lumbar spine, initial encounter (principal); G89.29 Other chronic pain; F41.9 Anxiety disorder, unspecified; J45.909 Unspecified asthma, uncomplicated; K21.9 Gastro-esophageal reflux disease without esophagitis; I10 Essential (primary) hypertension; F32.9 Major depressive disorder, single episode, unspecified; F12.90 Cannabis use, unspecified, uncomplicated; Z86.73 Personal history of transient ischemic attack (TIA), and cerebral infarction without residual deficits; Z90.49 Acquired absence of other specified parts of digestive tract; Z87.891 Personal history of nicotine dependence; Z88.1 Allergy status to other antibiotic agents; Z88.8 Allergy status to other drugs, medicaments and biological substances; Z79.82 Long term (current) use of aspirin; X58.XXXA Exposure to other specified factors, initial encounter; Y93.89 Activity, other specified; Y92.89 Other specified places as the place of occurrence of the external cause; Y99.8 Other external cause status
CPT/HCPCS: 96372; 99283; J1100; J1885; J2270

== ENCOUNTER 2023-01-15 15:46 | Emergency (ER) | payer OTHER ==
[~2023-01-15] VITALS: Ht 167.6 cm; Wt 79.5 kg
[~2023-01-15 15:46] MED LIST changes: -ALBU8.5H8 IH; -ASPI-891 PO; +ASPI81TA87 PO; +BUPR-50 PO; -BUPR100SR PO; +CARV12 PO; -CARV6 PO; +CHOL500043 PO; +EZET10TA57 PO; +LACT1CAP70 PO; -OMEG-135 PO; -SUMA25TA9 PO
[2023-01-15] MEDS ORDERED: MORPHINE SULFATE 4 MG/ML SYRINGE IVP ONE (17:00)
[2023-01-15 17:10] LABS: BASOPHILS % (AUTO) 0.3 % (0.0-2.0); HEMATOCRIT 41.5 % (41-53); HEMOGLOBIN 13.8 g/dL (13.5-17.5); LYMPHOCYTES # (AUTO) 1.9 K/uL (1.0-4.8); LYMPHOCYTES % (AUTO) 18.4 % (22.0-44.0); MEAN CORPUSCULAR HEMOGLOBIN 28.9 pg (26.0-34.0); MEAN CORPUSCULAR HGB CONC 33.1 G/dL (31.0-37.0); MEAN CORPUSCULAR VOLUME 87 fL (80-100); MONOCYTES # (AUTO) 0.8 K/uL (0.1-1.0); MONOCYTES % (AUTO) 7.6 % (2.0-9.0); NEUTROPHILS # (AUTO) 7.4 K/uL (1.8-7.7); NEUTROPHILS % (AUTO) 72.7 % (40.0-70.0); PLATELET COUNT (AUTO) 234 K/uL (150-450); RED BLOOD CELL COUNT(AUTO) 4.76 MIL/uL (4.50-5.90); RED CELL DISTRIBUTION WIDTH 15.1 % (11.5-14.5)
[2023-01-15 18:11] LABS: ERYTHROCYTE SEDIMENTATION RATE 7 MM/HR (0-15)
[2023-01-15 19:10] VITALS: BP 137/78
== END 2023-01-15 19:13 | disposition home or self-care (01) ==
LOC: EMS 15:52
DX: M25.551 Pain in right hip (principal); M16.11 Unilateral primary osteoarthritis, right hip; J45.909 Unspecified asthma, uncomplicated; F41.9 Anxiety disorder, unspecified; F32.A Depression, unspecified; I10 Essential (primary) hypertension; K21.9 Gastro-esophageal reflux disease without esophagitis; I63.9 Cerebral infarction, unspecified; K58.9 Irritable bowel syndrome, unspecified; F11.20 Opioid dependence, uncomplicated; F12.90 Cannabis use, unspecified, uncomplicated; Z90.49 Acquired absence of other specified parts of digestive tract; Z88.8 Allergy status to other drugs, medicaments and biological substances
CPT/HCPCS: 99285; 96374; 73700; 85025; 85651; 86140; 36415; J2270

== ENCOUNTER 2023-05-13 11:24 | Emergency (ER) | payer OTHER ==
[~2023-05-13] VITALS: Ht 167.6 cm; Wt 77.3 kg
[~2023-05-13 11:24] MED LIST changes: +ATOR20TA PO; -ATOR20TA86 PO
[2023-05-13 11:43] LABS: COVID AG,FIA SOURCE NASAL SWAB
[2023-05-13 11:51] LABS: INFLUENZA TYPE A NEGATIVE FOR TYPE A (NEGATIVE); INFLUENZA TYPE B NEGATIVE FOR TYPE B (NEGATIVE)
[2023-05-13] MEDS ORDERED: GuaiFENesin/D-METHORPHAN [SUGAR-FREE] 200-20MG/10 ML SYRUP UDCUP PO ONE (12:30)
[2023-05-13] MEDS ORDERED: ACETAMINOPHEN 500 MG TABLET PO ONE (12:30)
[2023-05-13] MEDS ORDERED: IPRATROPIUM BROMIDE 0.5 MG/2.5 ML NEB SOLUTION NEB ONE (12:30)
[2023-05-13] MEDS ORDERED: DIPHENOXYLATE/ATROP 2.5-0.025 MG TABLET PO ONE (12:30)
[2023-05-13] MEDS ORDERED: ALBUTEROL SULFATE 2.5 MG/0.5 ML NEB SOLUTION NEB ONE (12:30)
[2023-05-13 13:30] VITALS: PULSE 64; RESP 18; O2SAT 98
[2023-05-13 13:34] VITALS: PULSE 64; RESP 18; O2SAT 98
[2023-05-13 13:46] VITALS: PULSE 68; RESP 18; O2SAT 99
[2023-05-13] MEDS ORDERED: DIPH-654 PO (13:50)
[2023-05-13] MEDS ORDERED: GUAIFDM PO (13:50)
[2023-05-13] MEDS ORDERED: ALBU18HF12 IH (13:50)
[2023-05-13] MEDS ORDERED: PRED-554 PO (13:50)
[2023-05-13] MEDS ORDERED: ACET-66 PO (13:50)
[2023-05-13 15:28] VITALS: BP 126/80; PULSE 67; RESP 16; TEMP 98
== END 2023-05-13 15:35 | disposition home or self-care (01) ==
LOC: EMS 11:44
DX: J06.9 Acute upper respiratory infection, unspecified (principal); J20.9 Acute bronchitis, unspecified; R19.7 Diarrhea, unspecified; R07.89 Other chest pain; F41.9 Anxiety disorder, unspecified; M19.90 Unspecified osteoarthritis, unspecified site; J45.909 Unspecified asthma, uncomplicated; F32.A Depression, unspecified; I10 Essential (primary) hypertension; F12.90 Cannabis use, unspecified, uncomplicated; Z20.822 Contact with and (suspected) exposure to COVID-19; Z87.891 Personal history of nicotine dependence; Z90.49 Acquired absence of other specified parts of digestive tract; Z98.890 Other specified postprocedural states; Z88.8 Allergy status to other drugs, medicaments and biological substances
CPT/HCPCS: 99285; 71045; 87426; 87804; 94640; 93005; C9803; J7613

== ENCOUNTER 2024-07-18 11:56 | Emergency (ER) | payer OTHER ==
[~2024-07-18] VITALS: Ht 167.6 cm; Wt 84.1 kg
[~2024-07-18 11:56] MED LIST changes: +ACET-66 PO; +ALBU18HF12 IH; -BUPR-50 PO; +BUPR-514 PO; +DIPH-1130 PO; +GUAIFDM PO; +PRED-554 PO
[2024-07-18 12:04] VITALS: TEMP 98
[2024-07-18] MEDS ORDERED: HYDR-4069 PO (12:09)
[2024-07-18] MEDS ORDERED: CARV6.2534 PO (12:09)
[2024-07-18] MEDS ORDERED: NITR0.4T50 SL (12:09)
[2024-07-18] MEDS ORDERED: AMLO5TAB66 PO (12:09)
[2024-07-18] MEDS ORDERED: ASPI-1444 PO (12:09)
[2024-07-18] MEDS ORDERED: FLUO-341 PO (12:09)
[2024-07-18] MEDS ORDERED: ATOR40TA71 PO (12:09)
[2024-07-18] MEDS ORDERED: OMEP40CA21 PO (12:09)
[2024-07-18] MEDS ORDERED: NIRM1TAB10 PO (12:09)
[2024-07-18] MEDS ORDERED: CETI10TA58 PO (12:09)
[2024-07-18] MEDS ORDERED: BUPR-49 PO (12:09)
[2024-07-18] MEDS ORDERED: ALBUTEROL SULFATE 2.5 MG/0.5 ML NEB SOLUTION NEB ONE (14:45)
[2024-07-18] MEDS ORDERED: IPRATROPIUM BROMIDE 0.5 MG/2.5 ML NEB SOLUTION NEB ONE (14:45)
[2024-07-18] MEDS ORDERED: 0.9% SODIUM CHLORIDE 10 ML SYRINGE IVP PRN (14:45)
[2024-07-18 15:26] LABS: BASOPHILS % (AUTO) 0.3 % (0.0-2.0); EOSINOPHILS % (AUTO) 1.3 % (1.0-6.0); HEMATOCRIT 43.9 % (41-53); HEMOGLOBIN 14.4 g/dL (13.5-17.5); MEAN CORPUSCULAR HEMOGLOBIN 29.2 pg (26.0-34.0); MEAN CORPUSCULAR HGB CONC 32.8 G/dL (31.0-37.0); MEAN CORPUSCULAR VOLUME 89 fL (80-100); MONOCYTES # (AUTO) 0.5 K/uL (0.1-1.0); MONOCYTES % (AUTO) 7.6 % (2.0-9.0); NEUTROPHILS # (AUTO) 4.4 K/uL (1.8-7.7); NEUTROPHILS % (AUTO) 62.8 % (40.0-70.0); PLATELET COUNT (AUTO) 236 K/uL (150-450); RED BLOOD CELL COUNT(AUTO) 4.93 MIL/uL (4.50-5.90); RED CELL DISTRIBUTION WIDTH 14.3 % (11.5-14.5)
[2024-07-18 15:33] LABS: PROTHROMBIN TIME 10.4 SEC (9.4-11.6)
[2024-07-18] MEDS: SODIUM CHLORIDE 0.9% 2,500 ML IV ONE (15:33)
[2024-07-18] MEDS: ONDANSETRON HCL 4 MG/2 ML VIAL IVP ONE (15:33)
[2024-07-18] MEDS: HYDROmorphone HCL 2 MG/ML SYRINGE IVP ONE (15:34)
[2024-07-18] MEDS: MethylPREDNISolone SOD SUCC 125 MG/2 ML VIAL IVP ONE (15:34)
[2024-07-18 15:41] LABS: TROPONIN I-HIGH SENSITIVITY 4 ng/L (<76)
[2024-07-18 15:42] LABS: LACTIC ACID 1.5 mmol/L (0.4-2.0)
[2024-07-18 15:43] LABS: B-TYPE NATRIURETIC PEPTIDE 24 pg/mL (0-100)
[2024-07-18 15:46] LABS: ANION GAP 12 mmol/L (8-16); CARBON DIOXIDE 23 mmol/L (22-29); CHLORIDE 105 mmol/L (98-107); CREATININE 0.85 mg/dL (0.60-1.30); GLOMERULAR FILTR. RATE CALC > 60 mL/min (>60); GLUCOSE,RANDOM 82 mg/dL (70-110); POTASSIUM 3.5 mmol/L (3.5-5.1); SODIUM SERUM 140 mmol/L (136-145); UREA NITROGEN, BLOOD 9 mg/dL (7-18)
[2024-07-18] MEDS: ACETAMINOPHEN 500 MG TABLET PO ONE (15:47)
[2024-07-18 15:51] LABS: ALANINE AMINOTRANSFERASE 18 U/L (12-78); ALBUMIN 3.7 g/dL (3.4-5.0); ALKALINE PHOSPHATASE 104 U/L (46-116); ASPARTATE AMINOTRANSFERASE 16 U/L (15-37); BILIRUBIN,TOTAL 0.4 mg/dL (0.1-1.0); TOTAL PROTEIN, SERUM 7.2 g/dL (6.4-8.2)
[2024-07-18] MEDS ORDERED: HYDR-4072 PO (16:46)
[2024-07-18 16:56] LABS: APPEARANCE,URINE CLEAR (CLEAR); BILIRUBIN,URINE NEGATIVE (NEGATIVE); COLOR,URINE COLORLESS (YELLOW); GLUCOSE, URINE (UA) NEGATIVE (NEGATIVE); KETONES,URINE NEGATIVE (NEGATIVE); LEUKOCYTE ESTERASE ,URINE NEGATIVE (NEGATIVE); NITRATE,URINE NEGATIVE (NEGATIVE); OCCULT BLOOD,URINE NEGATIVE (NEGATIVE); PH,URINE 5.5 (5.0-8.0); PROTEIN,URINE NEGATIVE (NEGATIVE); SPECIFIC GRAVITIY, URINE 1.006 (1.003-1.030); UROBILINOGEN,URINE <=1.0 mg/dL (<=1.0)
[2024-07-18 17:14] LABS: INFLUENZA A-RTPCR,COMBO NEGATIVE (NEGATIVE); INFLUENZA B-RTPCR,COMBO NEGATIVE (NEGATIVE); RESPIRATORY SYNCYTIAL VRS-PCR NEGATIVE (NEGATIVE)
[2024-07-18 17:35] VITALS: BP 128/72; PULSE 61; RESP 17; O2SAT 99
[2024-07-18 17:37] LABS: SARS COVID19 RTPCR, COMBO POSITIVE (NEGATIVE)
== END 2024-07-18 17:46 | disposition home or self-care (01) ==
LOC: EMS 11:56
DX: K52.9 Noninfective gastroenteritis and colitis, unspecified (principal); U07.1 COVID-19; J45.901 Unspecified asthma with (acute) exacerbation; K21.9 Gastro-esophageal reflux disease without esophagitis; F41.9 Anxiety disorder, unspecified; F32.A Depression, unspecified; M19.90 Unspecified osteoarthritis, unspecified site; I10 Essential (primary) hypertension; F12.90 Cannabis use, unspecified, uncomplicated; Z87.891 Personal history of nicotine dependence; Z90.49 Acquired absence of other specified parts of digestive tract; Z98.890 Other specified postprocedural states; Z86.73 Personal history of transient ischemic attack (TIA), and cerebral infarction without residual deficits; Z79.899 Other long term (current) drug therapy; Z79.82 Long term (current) use of aspirin; Z88.8 Allergy status to other drugs, medicaments and biological substances
CPT/HCPCS: 99285; 96374; 0241U; 96361; 96375; 71045; 80053; 81003; 83605; 83880; 84484; 85025; 85610; 87040; 36415; 93005; 84145; J1171; J2919; J2405; J7030

== ENCOUNTER 2024-09-03 02:48 | Emergency (ER) | payer OTHER ==
[~2024-09-03] VITALS: Ht 167.6 cm; Wt 75.0 kg
[~2024-09-03 02:48] MED LIST changes: -ACET-66 PO; +AMLO5TAB66 PO; +ASPI-1444 PO; -ASPI81TA87 PO; -ATOR20TA PO; +ATOR40TA71 PO; +BUPR-49 PO; -BUPR-514 PO; -CARV12 PO; +CARV6.2534 PO; +CETI10TA58 PO; +FLUO-341 PO; +HYDR-4069 PO; +HYDR-4072 PO; -HYDR-4455 PO; -LACT1CAP70 PO; +NIRM1TAB10 PO; +NITR0.4T50 SL; -NITR0.4T52 SL; -OMEP20 PO; +OMEP40CA21 PO; -PRED-554 PO
[2024-09-03 02:59] VITALS: TEMP 98.7
[2024-09-03 03:13] LABS: COVID AG,FIA SOURCE NASAL SWAB
[2024-09-03] MEDS: SODIUM CHLORIDE 0.9% 500 ML IV ONE (03:14)
[2024-09-03] MEDS: MethylPREDNISolone SOD SUCC 125 MG/2 ML VIAL IVP ONE (03:14)
[2024-09-03 03:17] LABS: BASOPHILS % (AUTO) 0.5 % (0.0-2.0); EOSINOPHILS % (AUTO) 0.6 % (1.0-6.0); HEMATOCRIT 42.5 % (41-53); HEMOGLOBIN 14.5 g/dL (13.5-17.5); LYMPHOCYTES # (AUTO) 1.1 K/uL (1.0-4.8); LYMPHOCYTES % (AUTO) 19.2 % (22.0-44.0); MEAN CORPUSCULAR HEMOGLOBIN 29.6 pg (26.0-34.0); MEAN CORPUSCULAR HGB CONC 34.1 G/dL (31.0-37.0); MEAN CORPUSCULAR VOLUME 87 fL (80-100); MONOCYTES # (AUTO) 0.9 K/uL (0.1-1.0); MONOCYTES % (AUTO) 14.6 % (2.0-9.0); NEUTROPHILS # (AUTO) 3.8 K/uL (1.8-7.7); NEUTROPHILS % (AUTO) 65.1 % (40.0-70.0); PLATELET COUNT (AUTO) 206 K/uL (150-450); RED CELL DISTRIBUTION WIDTH 14.3 % (11.5-14.5); WHITE BLOOD COUNT (AUTO) 5.9 K/uL (4.5-11.0)
[2024-09-03 03:26] LABS: ANION GAP 11 mmol/L (8-16); CALCIUM, TOTAL 8.6 mg/dL (8.8-10.5); CARBON DIOXIDE 25 mmol/L (22-29); CHLORIDE 101 mmol/L (98-107); GLOMERULAR FILTR. RATE CALC > 60 mL/min (>60); GLUCOSE,RANDOM 110 mg/dL (70-110); SODIUM SERUM 137 mmol/L (136-145); UREA NITROGEN, BLOOD 18 mg/dL (7-18)
[2024-09-03 03:28] LABS: PROTHROMBIN TIME 10.5 SEC (9.4-11.6)
[2024-09-03 03:29] LABS: INFLUENZA TYPE B NEGATIVE FOR TYPE B (NEGATIVE)
[2024-09-03 03:30] LABS: INFLUENZA TYPE A POSITIVE FOR TYPE A (NEGATIVE); SARS-COV2 (COVID) ANTIGEN,FIA Negative (Negative)
[2024-09-03] MEDS: ALBUTEROL SULFATE 2.5 MG/0.5 ML NEB SOLUTION NEB ONE (03:32)
[2024-09-03] MEDS: IPRATROPIUM BROMIDE 0.5 MG/2.5 ML NEB SOLUTION NEB ONE (03:33)
[2024-09-03 03:34] LABS: TROPONIN I-HIGH SENSITIVITY 8 ng/L (<76)
[2024-09-03 03:35] VITALS: PULSE 71; RESP 20; O2SAT 97
[2024-09-03 03:39] LABS: B-TYPE NATRIURETIC PEPTIDE 6 pg/mL (0-100)
[2024-09-03] MEDS: OSELTAMIVIR PHOSPHATE 75 MG CAPSULE PO ONE (04:19)
[2024-09-03] MEDS: LORazepam 1 MG TABLET PO ONE (04:19)
[2024-09-03 04:57] VITALS: BP 118/78; PULSE 75; RESP 18; O2SAT 97
[2024-09-03] MEDS ORDERED: OSEL75CA45 PO (04:58)
[2024-09-03] MEDS ORDERED: PRED-554 PO (04:58)
== END 2024-09-03 05:15 | disposition home or self-care (01) ==
LOC: EMS 02:50
DX: J10.1 Influenza due to other identified influenza virus with other respiratory manifestations (principal); J45.901 Unspecified asthma with (acute) exacerbation; F41.9 Anxiety disorder, unspecified; F32.A Depression, unspecified; I10 Essential (primary) hypertension; K21.9 Gastro-esophageal reflux disease without esophagitis; M19.90 Unspecified osteoarthritis, unspecified site; F12.90 Cannabis use, unspecified, uncomplicated; K58.9 Irritable bowel syndrome, unspecified; Z79.82 Long term (current) use of aspirin; Z79.899 Other long term (current) drug therapy; Z90.49 Acquired absence of other specified parts of digestive tract; Z98.890 Other specified postprocedural states; Z87.891 Personal history of nicotine dependence; Z88.8 Allergy status to other drugs, medicaments and biological substances; Z20.822 Contact with and (suspected) exposure to COVID-19
CPT/HCPCS: 99285; 96374; 71045; 96361; 87426; 80048; 83880; 84484; 85025; 85610; 85730; 87804; 36415; 94640; 93005; J2919; J7040; J7613

== ENCOUNTER 2024-12-02 11:18 | Emergency (ER) | payer OTHER ==
[~2024-12-02] VITALS: Ht 170.2 cm; Wt 74.1 kg
[~2024-12-02 11:18] MED LIST changes: +OSEL75CA45 PO; +PRED-554 PO
[2024-12-02 11:28] VITALS: BP 141/87; TEMP 98.3
[2024-12-02 11:36] LABS: COVID AG,FIA SOURCE NASAL SWAB
[2024-12-02 11:56] LABS: INFLUENZA TYPE A NEGATIVE FOR TYPE A (NEGATIVE); INFLUENZA TYPE B NEGATIVE FOR TYPE B (NEGATIVE); SARS-COV2 (COVID) ANTIGEN,FIA Negative (Negative)
[2024-12-02] MEDS: ALBUTEROL SULFATE 2.5 MG/0.5 ML NEB SOLUTION NEB ONE (12:32)
[2024-12-02 12:35] VITALS: PULSE 72; RESP 28; O2SAT 99
[2024-12-02 12:36] LABS: BASOPHILS % (AUTO) 0.5 % (0.0-2.0); EOSINOPHILS % (AUTO) 2.1 % (1.0-6.0); HEMATOCRIT 46.1 % (41-53); LYMPHOCYTES # (AUTO) 1.7 K/uL (1.0-4.8); LYMPHOCYTES % (AUTO) 17.6 % (22.0-44.0); MEAN CORPUSCULAR HEMOGLOBIN 28.7 pg (26.0-34.0); MEAN CORPUSCULAR HGB CONC 32.6 G/dL (31.0-37.0); MEAN CORPUSCULAR VOLUME 88 fL (80-100); MONOCYTES % (AUTO) 10.7 % (2.0-9.0); NEUTROPHILS # (AUTO) 6.5 K/uL (1.8-7.7); NEUTROPHILS % (AUTO) 69.1 % (40.0-70.0); PLATELET COUNT (AUTO) 212 K/uL (150-450); RED BLOOD CELL COUNT(AUTO) 5.24 MIL/uL (4.50-5.90); RED CELL DISTRIBUTION WIDTH 15.1 % (11.5-14.5); WHITE BLOOD COUNT (AUTO) 9.4 K/uL (4.5-11.0)
[2024-12-02 12:41] LABS: ANION GAP 9 mmol/L (8-16); CALCIUM, TOTAL 9.3 mg/dL (8.8-10.5); CARBON DIOXIDE 26 mmol/L (22-29); CHLORIDE 106 mmol/L (98-107); CREATININE 0.96 mg/dL (0.60-1.30); GLOMERULAR FILTR. RATE CALC > 60 mL/min (>60); GLUCOSE,RANDOM 126 mg/dL (70-110); POTASSIUM 4.4 mmol/L (3.5-5.1); SODIUM SERUM 141 mmol/L (136-145); UREA NITROGEN, BLOOD 13 mg/dL (7-18)
[2024-12-02] MEDS: ACETAMINOPHEN 500 MG TABLET PO ONE (12:43)
[2024-12-02] MEDS: MethylPREDNISolone SOD SUCC 125 MG/2 ML VIAL IVP ONE (12:44)
[2024-12-02] MEDS: GuaiFENesin/D-METHORPHAN [SUGAR-FREE] 200-20MG/10 ML SYRUP UDCUP PO ONE (12:44)
[2024-12-02 12:51] LABS: TROPONIN I-HIGH SENSITIVITY 5 ng/L (<76)
[2024-12-02 12:55] VITALS: PULSE 71; RESP 20; O2SAT 97
[2024-12-02 13:00] LABS: B-TYPE NATRIURETIC PEPTIDE < 5 pg/mL (0-100)
[2024-12-02] MEDS ORDERED: AZIT250T9 PO (14:15)
[2024-12-02] MEDS ORDERED: PRED-554 PO (14:15)
== END 2024-12-02 15:03 | disposition home or self-care (01) ==
LOC: EMS 11:23
DX: J18.9 Pneumonia, unspecified organism (principal); J45.901 Unspecified asthma with (acute) exacerbation; F12.90 Cannabis use, unspecified, uncomplicated; I10 Essential (primary) hypertension; F32.A Depression, unspecified; F41.9 Anxiety disorder, unspecified; Z79.52 Long term (current) use of systemic steroids; Z79.82 Long term (current) use of aspirin; Z90.49 Acquired absence of other specified parts of digestive tract; Z79.899 Other long term (current) drug therapy; Z98.890 Other specified postprocedural states; Z20.822 Contact with and (suspected) exposure to COVID-19
CPT/HCPCS: 99285; 96374; 71045; 87426; 80048; 83880; 84484; 85025; 87804; 36415; 94640; 93005; J2919; J7613

== ENCOUNTER 2025-03-20 18:30 | Emergency (ER) | payer OTHER ==
[~2025-03-20] VITALS: Ht 167.6 cm; Wt 77.3 kg
[2025-03-20 18:34] VITALS: TEMP 98.2
[2025-03-20 18:50] LABS: PLATELET COUNT (AUTO) 216 K/uL (150-450); RED BLOOD CELL COUNT(AUTO) 4.83 MIL/uL (4.50-5.90); RED CELL DISTRIBUTION WIDTH 15.1 % (11.5-14.5); WHITE BLOOD COUNT (AUTO) 7.1 K/uL (4.5-11.0)
[2025-03-20 19:01] LABS: CALCIUM, TOTAL 8.6 mg/dL (8.8-10.5); CREATININE 1.04 mg/dL (0.60-1.30); GLOMERULAR FILTR. RATE CALC > 60 mL/min (>60); GLUCOSE,RANDOM 135 mg/dL (70-110); SODIUM SERUM 143 mmol/L (136-145); UREA NITROGEN, BLOOD 13 mg/dL (7-18)
[2025-03-20 19:24] LABS: ASPARTATE AMINOTRANSFERASE 30.0 U/L (15-37); TOTAL PROTEIN, SERUM 6.5 g/dL (6.4-8.2)
[2025-03-20] MEDS: KETOROLAC TROMETHAMINE 30 MG/ML VIAL IM ONE (22:41)
[2025-03-20] MEDS: ONDANSETRON 4 MG TABLET PO ONE (22:41)
[2025-03-20 23:24] LABS: APPEARANCE,URINE CLEAR (CLEAR); GLUCOSE, URINE (UA) NEGATIVE (NEGATIVE); LEUKOCYTE ESTERASE ,URINE NEGATIVE (NEGATIVE); NITRATE,URINE NEGATIVE (NEGATIVE); OCCULT BLOOD,URINE NEGATIVE (NEGATIVE); SPECIFIC GRAVITIY, URINE 1.008 (1.003-1.030)
[2025-03-21] MEDS ORDERED: IOHEXOL 350 MG/ML 100 ML VIAL ONE (00:46)
[2025-03-21] MEDS ORDERED: SODIUM CHLORIDE 0.9% 100 ML ONE (00:47)
[2025-03-21 05:35] VITALS: BP 133/65; PULSE 61; RESP 18; O2SAT 98
[2025-03-21] MEDS ORDERED: ONDA-104 PO (05:36)
== END 2025-03-21 05:58 | disposition home or self-care (01) ==
LOC: EMS 18:30
DX: R10.84 Generalized abdominal pain (principal); R11.2 Nausea with vomiting, unspecified; F41.9 Anxiety disorder, unspecified; F32.A Depression, unspecified; I10 Essential (primary) hypertension; J45.909 Unspecified asthma, uncomplicated; M19.90 Unspecified osteoarthritis, unspecified site; K21.9 Gastro-esophageal reflux disease without esophagitis; K58.0 Irritable bowel syndrome with diarrhea; F12.90 Cannabis use, unspecified, uncomplicated; Z79.52 Long term (current) use of systemic steroids; Z79.82 Long term (current) use of aspirin; Z86.73 Personal history of transient ischemic attack (TIA), and cerebral infarction without residual deficits; Z87.19 Personal history of other diseases of the digestive system; Z90.49 Acquired absence of other specified parts of digestive tract; Z79.899 Other long term (current) drug therapy; Z98.890 Other specified postprocedural states; Z87.891 Personal history of nicotine dependence
CPT/HCPCS: 99285; 74177; 76700; 80048; 80076; 81003; 83690; 85025; 36415; 96372; 96374; J1885; Q0162; Q9967; J1171; J7050